=== PATIENT | female | born 1985 | race Caucasian/White ===

== ENCOUNTER 2016-10-08 19:43 | Emergency (ER) | payer SELFPAY ==
[~2016-10-08] VITALS: Ht 165.1 cm; Wt 54.4 kg
[~2016-10-08 19:43] MED LIST: ANUSOL-HC25 MG RC; CIPROFLOXACIN500 MG PO; CLEOCIN HCL300 MG PO; CLINDAMYCIN HC300 MG PO; COLACE100 MG PO; DARVOCET N 1001 TAB PO; FLAGYL500 MG PO; Flagyl500 M1 PO; HYDROCODONE BIT1 T11 PO; IBUPROFEN200 M1; LORAZEPAM1 MG PO; MEDROL DOSEPAK4 MG PO; MOTRIN800 MG PO; NAPROSYN500 MG PO; NEURONTIN100 MG PO; ORAJEL10%; PROCTOFOAM-HC 11 FOA RC; Peridex 473 ML473 ML PO; QUETIAPINE FUM100 M3 PO; ROBAXIN750 MG PO; SKELAXIN800 MG PO; TRAMADOL HCL50 MG PO; TRAMADOL50 MG PO; TYLENOL325 M1 PO; ULTRAM50 MG PO; VICODIN 500 MG-1 TAB PO; ZITHROMAX Z PA250 MG PO; ZOLOFT25 MG PO
== END 2016-10-08 22:34 | disposition home or self-care (01) ==
LOC: ED 19:43
DX: S60.222A Contusion of left hand, initial encounter (principal); F17.200 Nicotine dependence, unspecified, uncomplicated; Z88.0 Allergy status to penicillin; Z88.1 Allergy status to other antibiotic agents; Z88.2 Allergy status to sulfonamides; W23.0XXA Caught, crushed, jammed, or pinched between moving objects, initial encounter; Y93.89 Activity, other specified; Y92.810 Car as the place of occurrence of the external cause; Y99.9 Unspecified external cause status

== ENCOUNTER 2019-08-20 15:15 | Emergency (ER) | payer OTHER ==
[~2019-08-20] VITALS: Ht 165.1 cm; Wt 63.0 kg
[2019-08-20 16:05] LABS: BILIRUBIN NEGATIVE (NEGATIVE); BLOOD NEGATIVE (NEGATIVE); CLARITY CLEAR (CLEAR); COLOR YELLOW (YELLOW); GLUCOSE NEGATIVE (NEGATIVE); KETONE NEGATIVE (NEGATIVE); LEUKO ESTERASE NEGATIVE (NEGATIVE); NITRITE NEGATIVE (NEGATIVE); PH 7.5 (5.0-9.0); UROBILINOGEN 0.2 E.U./dl (0.2-1.0)
[2019-08-20 16:13] LABS: BACTERIA 4+; RBC 0-2 rbc/hpf (0-2)
[2019-08-20] MEDS ORDERED: PYRIDIUM100 MG PO (16:22)
[2019-08-20] MEDS ORDERED: CIPRO500 MG PO (16:22)
== END 2019-08-20 16:31 | disposition home or self-care (01) ==
LOC: ED 15:15
PROVIDERS: Nurse Practitioner Family
DX: R30.0 Dysuria (principal); R39.198 Other difficulties with micturition; R10.9 Unspecified abdominal pain; Z88.0 Allergy status to penicillin; Z88.2 Allergy status to sulfonamides; Z88.1 Allergy status to other antibiotic agents

== ENCOUNTER 2020-04-19 08:44 | Emergency (ER) | payer OTHER ==
[~2020-04-19] VITALS: Wt 67.1 kg
[~2020-04-19 08:44] MED LIST changes: +CIPRO500 MG PO; +PYRIDIUM100 MG PO
[2020-04-19] MEDS ORDERED: Motrin,Rufen800 MG PO (09:26)
[2020-04-19] MEDS ORDERED: CLINDAMYCIN HC300 MG PO (09:26)
== END 2020-04-19 09:32 | disposition home or self-care (01) ==
LOC: ED 08:44
DX: K08.89 Other specified disorders of teeth and supporting structures (principal); Z88.8 Allergy status to other drugs, medicaments and biological substances; Z88.2 Allergy status to sulfonamides; Z88.5 Allergy status to narcotic agent; Z79.899 Other long term (current) drug therapy

== ENCOUNTER → 2020-05-08 | Outpatient (CLI) | payer OTHER ==
[~2020-05-08] MED LIST changes: +Motrin,Rufen800 MG PO
== END | disposition home or self-care (01) ==
LOC: COVID19 17:30
PROVIDERS: ATTEND Hospitalist
DX: Z20.828 Contact with and (suspected) exposure to other viral communicable diseases (principal)

== ENCOUNTER 2020-08-11 14:20 | Emergency (ER) | payer OTHER ==
[~2020-08-11] VITALS: Ht 165.1 cm; Wt 67.1 kg
[2020-08-11] MEDS ORDERED: PREDNISONE20 M1 PO (16:34)
== END 2020-08-11 16:44 | disposition home or self-care (01) ==
LOC: ED 14:20
DX: M54.16 Radiculopathy, lumbar region (principal); F41.9 Anxiety disorder, unspecified; F32.9 Major depressive disorder, single episode, unspecified; F17.200 Nicotine dependence, unspecified, uncomplicated; Z88.0 Allergy status to penicillin; Z88.2 Allergy status to sulfonamides; Z88.8 Allergy status to other drugs, medicaments and biological substances; Z79.899 Other long term (current) drug therapy; Z98.51 Tubal ligation status; Z90.711 Acquired absence of uterus with remaining cervical stump; W19.XXXA Unspecified fall, initial encounter; Y93.89 Activity, other specified; Y92.89 Other specified places as the place of occurrence of the external cause; Y99.8 Other external cause status

== ENCOUNTER 2020-08-21 09:40 | Emergency (ER) | payer OTHER ==
[~2020-08-21] VITALS: Wt 68.0 kg
[~2020-08-21 09:40] MED LIST changes: +PREDNISONE20 M1 PO
[2020-08-21] MEDS ORDERED: PERCOCET 5-3251 EACH PO (11:09)
[2020-08-21] MEDS ORDERED: Motrin,Rufen800 MG PO (11:09)
== END 2020-08-21 11:37 | disposition home or self-care (01) ==
LOC: ED 09:40
DX: K04.7 Periapical abscess without sinus (principal); F41.9 Anxiety disorder, unspecified; F32.9 Major depressive disorder, single episode, unspecified; F17.200 Nicotine dependence, unspecified, uncomplicated; Z88.0 Allergy status to penicillin; Z88.2 Allergy status to sulfonamides; Z88.1 Allergy status to other antibiotic agents; Z79.2 Long term (current) use of antibiotics; Z79.899 Other long term (current) drug therapy; Z98.51 Tubal ligation status; Z90.711 Acquired absence of uterus with remaining cervical stump

== ENCOUNTER 2020-09-20 16:03 | Emergency (ER) | payer OTHER ==
[~2020-09-20] VITALS: Ht 165.1 cm; Wt 59.0 kg
[~2020-09-20 16:03] MED LIST changes: +PERCOCET 5-3251 EACH PO
[2020-09-20] MEDS ORDERED: ROBAXIN-750750 MG PO (19:37)
[2020-09-20] MEDS ORDERED: IBUPROFEN600 MG PO (19:37)
== END 2020-09-20 19:50 | disposition home or self-care (01) ==
LOC: ED 16:03
DX: S20.20XA Contusion of thorax, unspecified, initial encounter (principal); S20.222A Contusion of left back wall of thorax, initial encounter; F41.9 Anxiety disorder, unspecified; F32.9 Major depressive disorder, single episode, unspecified; F17.200 Nicotine dependence, unspecified, uncomplicated; Z88.0 Allergy status to penicillin; Z88.2 Allergy status to sulfonamides; Z88.8 Allergy status to other drugs, medicaments and biological substances; Z79.899 Other long term (current) drug therapy; Z98.51 Tubal ligation status; Z90.711 Acquired absence of uterus with remaining cervical stump; X58.XXXA Exposure to other specified factors, initial encounter; Y93.89 Activity, other specified; Y92.89 Other specified places as the place of occurrence of the external cause; Y99.8 Other external cause status

== ENCOUNTER 2020-11-22 13:12 | Emergency (ER) | payer OTHER ==
[~2020-11-22] VITALS: Wt 59.0 kg
[~2020-11-22 13:12] MED LIST changes: +IBUPROFEN600 MG PO; +ROBAXIN-750750 MG PO
== END 2020-11-22 13:34 | disposition home or self-care (01) ==
LOC: ED 13:12
DX: K04.7 Periapical abscess without sinus (principal); Z88.0 Allergy status to penicillin; Z88.8 Allergy status to other drugs, medicaments and biological substances; Z88.2 Allergy status to sulfonamides; Z79.899 Other long term (current) drug therapy

== ENCOUNTER 2020-11-27 08:05 | Emergency (ER) | payer OTHER ==
[~2020-11-27] VITALS: Ht 165.1 cm; Wt 55.8 kg
[2020-11-27] MEDS ORDERED: PERCOCET 5-3251 EACH PO (10:07)
== END 2020-11-27 10:30 | disposition home or self-care (01) ==
LOC: ED 08:05
DX: K04.7 Periapical abscess without sinus (principal); K08.89 Other specified disorders of teeth and supporting structures; Z88.0 Allergy status to penicillin; Z88.2 Allergy status to sulfonamides; Z88.8 Allergy status to other drugs, medicaments and biological substances; Z79.899 Other long term (current) drug therapy; Z98.51 Tubal ligation status; Z90.711 Acquired absence of uterus with remaining cervical stump

== ENCOUNTER 2021-01-17 15:23 | Emergency (ER) | payer OTHER ==
[~2021-01-17] VITALS: Wt 56.7 kg
[2021-01-17] MEDS ORDERED: IBUPROFEN600 MG PO (19:35)
== END 2021-01-17 20:00 | disposition home or self-care (01) ==
LOC: ED 15:23
DX: S49.92XA Unspecified injury of left shoulder and upper arm, initial encounter (principal); F17.200 Nicotine dependence, unspecified, uncomplicated; Z88.0 Allergy status to penicillin; Z88.2 Allergy status to sulfonamides; Z88.1 Allergy status to other antibiotic agents; Z79.899 Other long term (current) drug therapy; Z79.2 Long term (current) use of antibiotics; Z98.51 Tubal ligation status; Z90.711 Acquired absence of uterus with remaining cervical stump; X50.0XXA Overexertion from strenuous movement or load, initial encounter; Y93.89 Activity, other specified; Y92.89 Other specified places as the place of occurrence of the external cause; Y99.8 Other external cause status

== ENCOUNTER 2021-01-19 16:12 | Emergency (ER) | payer OTHER ==
[~2021-01-19] VITALS: Ht 165.1 cm; Wt 56.7 kg
[2021-01-19] MEDS ORDERED: HYDROCODONE-AC1 EAC1 PO (17:43)
[2021-01-19] MEDS ORDERED: MEDROL DOSEPAK4 MG PO (17:43)
== END 2021-01-19 18:05 | disposition home or self-care (01) ==
LOC: ED 16:12
DX: S49.92XA Unspecified injury of left shoulder and upper arm, initial encounter (principal); F17.200 Nicotine dependence, unspecified, uncomplicated; Z88.0 Allergy status to penicillin; Z88.2 Allergy status to sulfonamides; Z88.1 Allergy status to other antibiotic agents; X58.XXXA Exposure to other specified factors, initial encounter; Y93.89 Activity, other specified; Y92.89 Other specified places as the place of occurrence of the external cause; Y99.8 Other external cause status

== ENCOUNTER 2021-01-22 09:00 | Emergency (ER) | payer OTHER ==
[~2021-01-22] VITALS: Ht 165.1 cm; Wt 59.0 kg
[~2021-01-22 09:00] MED LIST changes: +HYDROCODONE-AC1 EAC1 PO
[2021-01-22] MEDS ORDERED: PREDNISONE20 M1 PO (09:17)
== END 2021-01-22 09:40 | disposition home or self-care (01) ==
LOC: ED 09:00
DX: M25.512 Pain in left shoulder (principal); F84.0 Autistic disorder; Z88.0 Allergy status to penicillin; Z88.2 Allergy status to sulfonamides; Z88.1 Allergy status to other antibiotic agents; Z79.899 Other long term (current) drug therapy; Z79.2 Long term (current) use of antibiotics; Z90.711 Acquired absence of uterus with remaining cervical stump; Z98.51 Tubal ligation status; X50.1XXA Overexertion from prolonged static or awkward postures, initial encounter; Y93.89 Activity, other specified; Y92.89 Other specified places as the place of occurrence of the external cause; Y99.8 Other external cause status

== ENCOUNTER 2021-02-10 13:09 | Emergency (ER) | payer OTHER ==
[~2021-02-10] VITALS: Ht 165.1 cm; Wt 56.7 kg
[2021-02-10] MEDS ORDERED: ANUSOL HC30 GM PO ×2 (13:49)
== END 2021-02-10 13:44 | disposition home or self-care (01) ==
LOC: ED 13:09
DX: K64.5 Perianal venous thrombosis (principal); F17.200 Nicotine dependence, unspecified, uncomplicated; Z88.0 Allergy status to penicillin; Z88.2 Allergy status to sulfonamides; Z88.1 Allergy status to other antibiotic agents

== ENCOUNTER 2021-02-12 08:30 | Emergency (ER) | payer OTHER ==
[~2021-02-12] VITALS: Wt 56.7 kg
[~2021-02-12 08:30] MED LIST changes: +ANUSOL HC30 GM PO
[2021-02-12] MEDS ORDERED: PREDNISONE50 MG PO (08:54)
[2021-02-12] MEDS ORDERED: HYDROCODONE-AC1 EAC1 PO (08:54)
== END 2021-02-12 09:09 | disposition home or self-care (01) ==
LOC: ED 08:30
DX: S39.012A Strain of muscle, fascia and tendon of lower back, initial encounter (principal); Z88.0 Allergy status to penicillin; Z88.2 Allergy status to sulfonamides; Z88.1 Allergy status to other antibiotic agents; X50.1XXA Overexertion from prolonged static or awkward postures, initial encounter; Y93.89 Activity, other specified; Y92.89 Other specified places as the place of occurrence of the external cause; Y99.8 Other external cause status

== ENCOUNTER 2021-05-25 12:30 | Emergency (ER) | payer OTHER ==
[~2021-05-25] VITALS: Wt 63.5 kg
[~2021-05-25 12:30] MED LIST changes: +PREDNISONE50 MG PO
[2021-05-25] MEDS ORDERED: PREDNISONE50 MG PO (16:30)
== END 2021-05-25 16:43 | disposition home or self-care (01) ==
LOC: ED 12:30
DX: S39.012A Strain of muscle, fascia and tendon of lower back, initial encounter (principal); X50.9XXA Other and unspecified overexertion or strenuous movements or postures, initial encounter; Y93.89 Activity, other specified; Y92.89 Other specified places as the place of occurrence of the external cause; Y99.8 Other external cause status

== ENCOUNTER 2021-11-26 11:42 | Emergency (ER) | payer OTHER ==
[~2021-11-26] VITALS: Ht 165.1 cm; Wt 61.2 kg
[2021-11-26 12:43] LABS: BASO # 0.1 10*3/uL (0.0-0.1); BASO % 0.5 % (0.0-1.0); HEMATOCRIT 43.8 % (37.0-47.0); LYMPH # 1.5 10*3/uL (1.3-4.4); LYMPH % 16.3 % (27.0-41.0); MEAN CELL VOLUME 92.8 fl (81.0-99.0); MEAN CORPUSCULAR HGB 31.1 pg (27.0-31.0); MEAN CORPUSCULAR HGB CONC 33.6 g/dl (33.0-37.0); MEAN PLATELET VOLUME 10.9 fl (9.6-12.3); MONO # 0.5 10*3/uL (0.1-1.0); MONO % 5.1 % (3.0-9.0); NEUT # 7.3 10*3/uL (2.3-7.9); NEUT % 77.9 % (47.0-73.0); PLATELET COUNT AUTOMATED 191 10*3/uL (130-400); RED BLOOD COUNT 4.72 10*6/uL (4.10-5.10); RED CELL DISTRI WIDTH 12.1 % (0-14.5); WHITE BLOOD COUNT 9.4 10*3/uL (4.8-10.8)
[2021-11-26 13:07] LABS: ALKALINE PHOSPHATASE 42 U/L (45-117); BUN 11 mg/dl (7-24); CHLORIDE 110 mmol/L (98-107); CREATININE 0.64 mg/dL (0.55-1.02); POTASSIUM 3.8 mmol/L (3.5-5.1); SGOT/AST 20 IU/L (3-35); SGPT/ALT 20 U/L (12-78); SODIUM 139 mmol/L (136-145); TOTAL PROTEIN 7.7 gm/dL (6.4-8.2)
[2021-11-26 13:10] LABS: BETA-HCG, QUANT < 1.0 mIU/mL (1-3)
[2021-11-26] MEDS ORDERED: PREDNISONE50 MG PO (16:10)
[2021-11-26] MEDS ORDERED: HYDROCODONE-AC1 EAC1 PO (16:10)
[2021-11-26] MEDS ORDERED: CYCLOBENZAPRINE10 MG PO (16:10)
== END 2021-11-26 16:45 | disposition home or self-care (01) ==
LOC: ED 11:42
PROVIDERS: Emergency Medicine
DX: S16.1XXA Strain of muscle, fascia and tendon at neck level, initial encounter (principal); Z88.0 Allergy status to penicillin; Z88.1 Allergy status to other antibiotic agents; Z98.51 Tubal ligation status; Z90.710 Acquired absence of both cervix and uterus; X58.XXXA Exposure to other specified factors, initial encounter; Y93.89 Activity, other specified; Y92.89 Other specified places as the place of occurrence of the external cause; Y99.8 Other external cause status

== ENCOUNTER 2022-01-21 08:50 | Emergency (ER) | payer OTHER ==
[~2022-01-21] VITALS: Ht 165.1 cm; Wt 59.0 kg
[~2022-01-21 08:50] MED LIST changes: +CYCLOBENZAPRINE10 MG PO
[2022-01-21] MEDS ORDERED: ULTRAM50 MG PO (09:17)
[2022-01-21] MEDS ORDERED: CLINDAMYCIN HC300 MG PO (09:17)
== END 2022-01-21 09:40 | disposition home or self-care (01) ==
LOC: ED 08:50
DX: K02.9 Dental caries, unspecified (principal); Z88.0 Allergy status to penicillin; Z88.1 Allergy status to other antibiotic agents; Z98.51 Tubal ligation status; Z90.710 Acquired absence of both cervix and uterus

== ENCOUNTER 2022-11-18 08:57 | Emergency (ER) | payer OTHER ==
[~2022-11-18] VITALS: Ht 165.1 cm; Wt 71.2 kg
[2022-11-18] MEDS ORDERED: CLEOCIN HCL150 MG PO (09:14)
== END 2022-11-18 09:30 | disposition home or self-care (01) ==
LOC: ED 08:57
DX: K08.89 Other specified disorders of teeth and supporting structures (principal); K05.10 Chronic gingivitis, plaque induced; R51.9 Headache, unspecified; F41.9 Anxiety disorder, unspecified; F32.A Depression, unspecified; Z88.0 Allergy status to penicillin; Z88.2 Allergy status to sulfonamides; Z88.1 Allergy status to other antibiotic agents; Z88.8 Allergy status to other drugs, medicaments and biological substances; Z98.51 Tubal ligation status; Z90.710 Acquired absence of both cervix and uterus

== ENCOUNTER 2022-12-17 15:24 | Emergency (ER) | payer OTHER ==
[~2022-12-17] VITALS: Ht 165.1 cm; Wt 70.8 kg
[~2022-12-17 15:24] MED LIST changes: +CLEOCIN HCL150 MG PO
[2022-12-17] MEDS ORDERED: NAPROXEN500 MG PO (16:38)
[2022-12-17] MEDS ORDERED: NAPROSYN500 MG PO (16:39)
[2022-12-17] MEDS ORDERED: CLINDAMYCIN HC300 MG PO (16:39)
== END 2022-12-17 16:47 | disposition home or self-care (01) ==
LOC: ED 15:24
DX: K04.7 Periapical abscess without sinus (principal); F41.9 Anxiety disorder, unspecified; F32.A Depression, unspecified; Z88.0 Allergy status to penicillin; Z88.2 Allergy status to sulfonamides; Z88.1 Allergy status to other antibiotic agents; Z98.51 Tubal ligation status; Z90.710 Acquired absence of both cervix and uterus; Z87.891 Personal history of nicotine dependence

== ENCOUNTER 2024-07-22 06:59 | Emergency (ER) | payer SELFPAY ==
[~2024-07-22] VITALS: Ht 165.1 cm; Wt 59.0 kg
[~2024-07-22 06:59] MED LIST changes: +NAPROXEN500 MG PO
[2024-07-22] MEDS ORDERED: Ketorolac Tromethamine 30 MG/ML VIAL IM ONE (08:00)
[2024-07-22] MEDS ORDERED: NAPROSYN500 MG PO (08:06)
[2024-07-22] MEDS ORDERED: CLEOCIN HCL150 MG PO (08:06)
== END 2024-07-22 08:26 | disposition home or self-care (01) ==
LOC: ED 06:59
DX: K04.7 Periapical abscess without sinus (principal); F17.200 Nicotine dependence, unspecified, uncomplicated; Z88.0 Allergy status to penicillin; Z88.2 Allergy status to sulfonamides; Z88.1 Allergy status to other antibiotic agents

== ENCOUNTER 2024-11-15 06:57 | Emergency (ER) | payer SELFPAY ==
[~2024-11-15] VITALS: Ht 165.1 cm; Wt 61.2 kg
[2024-11-15] MEDS ORDERED: CLINDAMYCIN HCL 300 MG CAPSULE PO ONE (07:25)
[2024-11-15] MEDS ORDERED: TYLE3UD PO (07:29)
[2024-11-15] MEDS ORDERED: CLINDAMYCIN HC300 MG PO (07:29)
[2024-11-15] MEDS ORDERED: Ondansetron4 MG PO (07:29)
[2024-11-15] MEDS ORDERED: Ketorolac Tromethamine 60 MG/2 ML VIAL IM ONE (07:30)
== END 2024-11-15 07:45 | disposition home or self-care (01) ==
LOC: ED 06:57
DX: K04.7 Periapical abscess without sinus (principal); K02.9 Dental caries, unspecified; Z88.0 Allergy status to penicillin; Z88.2 Allergy status to sulfonamides; Z88.1 Allergy status to other antibiotic agents; Z79.899 Other long term (current) drug therapy; Z90.710 Acquired absence of both cervix and uterus

== ENCOUNTER 2025-03-01 08:51 | Emergency (ER) | payer SELFPAY ==
[~2025-03-01] VITALS: Ht 165.1 cm; Wt 54.4 kg
[~2025-03-01 08:51] MED LIST changes: +Ondansetron4 MG PO; +TYLE3UD PO
[2025-03-01] MEDS ORDERED: TRAMADOL HCL50 MG PO (09:47)
== END 2025-03-01 10:30 | disposition home or self-care (01) ==
LOC: ED 08:51
DX: K02.9 Dental caries, unspecified (principal); K04.7 Periapical abscess without sinus; Z88.0 Allergy status to penicillin; Z88.1 Allergy status to other antibiotic agents; Z88.2 Allergy status to sulfonamides; Z79.899 Other long term (current) drug therapy; Z90.710 Acquired absence of both cervix and uterus

== ENCOUNTER 2025-03-31 06:48 | Emergency (ER) | payer SELFPAY ==
[~2025-03-31] VITALS: Ht 165.1 cm; Wt 59.0 kg
== END 2025-03-31 08:03 | disposition home or self-care (01) ==
LOC: ED 06:48
DX: K04.7 Periapical abscess without sinus (principal); F41.9 Anxiety disorder, unspecified; F32.A Depression, unspecified; Z98.51 Tubal ligation status; Z88.0 Allergy status to penicillin; Z88.1 Allergy status to other antibiotic agents; Z88.2 Allergy status to sulfonamides; Z88.8 Allergy status to other drugs, medicaments and biological substances